=== PATIENT | male | born 1990 | race Caucasian/White ===

== ENCOUNTER 2017-03-14 11:59 | Emergency (ER) | payer OTHER ==
[~2017-03-14] VITALS: Ht 172.7 cm; Wt 74.8 kg
--- OUTSIDE RECORDS SUMMARY | 2017-03-14 12:22 | External Medical Summary Rpt | CCD ---
Demographics Preferred Language Frisian Marital Status Unknown Buddhist Affiliation Unknown Race Unknown Ethnic Group Unknown Author Author BRIAN Address Unknown Phone Purpose Continuity of Care Document - through 2016
--- OUTSIDE RECORDS SUMMARY | 2017-03-14 12:22 | External Medical Summary Rpt | CCD ---
Author Author , BRIAN Organization BRIAN Address Unknown Phone [email or web address] Purpose Continuity of Care Document - 04-09-2016 through 2016 Results Labs Lab Lab Date Result Refere Interp Status Commen Order Detail nces retati t Range on Bacteria Bld Cult (04-25-2016 15:09) Bacteri No active a XXX 017 growth Aerobe 15:09 at 4 Cult days Comp Metab 1997 Pnl SerPl (04-25-2016 15:09) Anion 16.0 3.0-11. complet Gap3 017 mmol/L 0 ed SerPl-s 15:09 Cnc BUN/Cre 17.1 7.0-25. complet at 017 0 ed SerPl 15:09 Albumin 1.3 1.5-2.5 complet /Glob 017 g/dL ed SerPl 15:09 Globuli 3.6 complet n Ur 017 gm/dL ed Elph-mC 15:09 nc GFR/BSA 140 >60 complet .pred 017 mL/min/ ed SerPl 15:09 1.73 MDRD-Ar VRat Bilirub 1.0 0.3-1.2 complet 017 mg/dL ed SerPl-m 15:09 Cnc ALP 66 U/L 25-100 complet SerPl-c 017 ed Cnc 15:09 AST 36 U/L 0-33 complet SerPl-c 017 ed Cnc 15:09 ALT 43 U/L 7-40 complet SerPl w 017 ed 15:09 P-5'-P- cCnc Albumin 4.70 3.20-4. complet 017 g/dL 80 ed SerPl-m 15:09 Cnc Prot 8.3 5.7-8.2 complet SerPl-m 017 g/dL ed Cnc 15:09 Calcium 10.1 8.7-10. complet 017 mg/dL 4 ed XXX-sCn 15:09 c CO2 26.0 20.0-31 complet SerPl-s 017 mmol/L .0 ed Cnc 15:09 Chlorid 103 99-109 complet e 017 mmol/L ed SerPl-s 15:09 Cnc Potassi 4.1 3.5-5.5 complet um 017 mmol/L ed Bld-sCn 15:09 c Sodium 145 132-146 complet Bld-sCn 017 mmol/L ed c 15:09 Creat 0.70 0.60-1. complet Bld-mCn 017 mg/dL 30 ed c 15:09 BUN 12 9-23 complet Bld-mCn 017 mg/dL ed c 15:09 Glucose 77 70-100 complet 017 mg/dL ed Bld-mCn 15:09 c ESR Bld Qn (04-25-2016 15:09) ESR Bld 7 mm/hr 0-15 complet Qn 017 ed 15:09 CBC W Diff pnl,unspecified Bld (04-25-2016 15:09) Neutrop 1.98 1.50-8. complet hils # 017 10*3/mm 30 ed Bld 15:09 3 Auto Imm 0.2 % 0.0-0.6 complet Granulo 017 ed cytes 15:09 NFr Bld Basophi 0.2 % 0.0-1.0 complet ls NFr 017 ed Bld 15:09 Auto Eosinop 0.5 % 0.0-3.0 complet hil NFr 017 ed Bld 15:09 Auto Monocyt 4.7 % 0.0-12. complet es NFr 017 0 ed Bld 15:09 Auto Lymphoc 45.7 % 24.0-44 complet ytes 017 .0 ed NFr Bld 15:09 Auto Neutrop 48.7 % 41.0-71 complet hils 017 .0 ed NFr Bld 15:09 Auto Platele 241 150-450 complet t # Bld 017 10*3/mm ed Auto 15:09 3 PMV Bld 9.9 fL 6.0-12. complet Auto 017 0 ed 15:09 RDW RBC 04-25-2 44.1 fl 37.0-54 complet Auto 017 .0 ed 15:09 RDW RBC 04-25- 12.9 % 11.3-14 complet 017 .5 ed Auto-Rt 15:09 o MCHC 35.4 32.0-36 complet RBC 017 g/dL .0 ed Auto-mC 15:09 nc MCH RBC 32.9 pg 27.0-31 complet Qn 017 .0 ed Auto 15:09 MCV RBC 93.1 fL 80.0-99 complet Auto 017 .0 ed 15:09 Hct VFr 44.4 % 38.9-50 complet Bld 017 .9 ed Auto 15:09 Hgb 04-25- 15.7 13.1-17 complet Bld-mCn 017 g/dL .5 ed c 15:09 RBC # 04-25-2 4.77 4.20-5. complet Bld 017 10*6/mm 76 ed Auto 15:09 3 WBC 04-25-2 4.07 3.50-10 complet nRBC 017 10*3/mm .80 ed cor # 15:09 3 Bld Lymphoc 04-25-2 1.86 0.60-4. complet ytes # 017 10*3/mm 80 ed Bld 15:09 3 Auto Basophi 04-25-2 0.01 0.00-0. complet ls # 017 10*3/mm 20 ed Bld 15:09 3 Auto Imm 04-25-2 0.01 0.00-0. complet Granulo 017 10*3/mm 03 ed cytes # 15:09 3 Bld Eosinop 04-25-2 0.02 0.10-0. complet hil # 017 10*3/mm 30 ed Bld 15:09 3 Auto Monocyt 04-25-2 0.19 0.00-1. complet es # 017 10*3/mm 00 ed Bld 15:09 3 Auto CBC (hemogram) Bld Auto (04-13-2016 06:54) Platele 233 150-450 complet t # Bld 017 10*3/mm ed Auto 06:54 3 PMV Bld 9.7 fL 6.0-12. complet Auto 017 0 ed 06:54 RDW RBC 41.5 fl 37.0-54 complet Auto 017 .0 ed 06:54 RDW RBC 12.9 % 11.3-14 complet 017 .5 ed Auto-Rt 06:54 o MCHC 36.4 32.0-36 complet RBC 017 g/dL .0 ed Auto-mC 06:54 nc MCH RBC 32.6 pg 27.0-31 complet Qn 017 .0 ed Auto 06:54 MCV RBC 89.6 fL 80.0-99 complet Auto 017 .0 ed 06:54 Hct VFr 39.6 % 38.9-50 complet Bld 017 .9 ed Auto 06:54 Hgb 14.4 13.1-17 complet Bld-mCn 017 g/dL .5 ed c 06:54 RBC # 4.42 4.20-5. complet Bld 017 10*6/mm 76 ed Auto 06:54 3 WBC 6.12 3.50-10 complet nRBC 017 10*3/mm .80 ed cor # 06:54 3 Bld Bas Metab 2000 Pnl SerPl (04-13-2016 06:54) Anion 6.0 3.0-11. complet Gap3 017 mmol/L 0 ed SerPl-s 06:54 Cnc BUN/Cre 12.9 7.0-25. complet at 017 0 ed SerPl 06:54 GFR/BSA 140 >60 complet .pred 017 mL/min/ ed SerPl 06:54 1.73 MDRD-Ar VRat Calcium 9.2 8.7-10. complet 017 mg/dL 4 ed XXX-sCn 06:54 c CO2 24.0 20.0-31 complet SerPl-s 017 mmol/L .0 ed Cnc 06:54 Chlorid 106 99-109 complet e 017 mmol/L ed SerPl-s 06:54 Cnc Potassi 3.8 3.5-5.5 complet um 017 mmol/L ed Bld-sCn 06:54 c Sodium 136 132-146 complet Bld-sCn 017 mmol/L ed c 06:54 Creat 0.70 0.60-1. complet Bld-mCn 017 mg/dL 30 ed c 06:54 BUN 9 mg/dL 9-23 complet Bld-mCn 017 ed c 06:54 Glucose 93 70-100 complet 017 mg/dL ed Bld-mCn 06:54 c Bacteria Shlw Wnd Aerobe Cult (04-11-2016 18:07) Bacteri [id number] complet a XXX 297 [id number] ed Aerobe 18:07 1 Cult ALPHA-H EMOLYTI C STREPTO COCCUS SPECIES NOT STREPTO COCCUS PNEUMON IAE SCT Gram No WBCs complet Stn XXX 017 or ed 18:07 organis ms seen Vancomycin Trough SerPl-mCnc (04-11-2016 09:43) Vancomy 5.30 10.00-2 complet apollo 017 mcg/mL 0.00 ed Trough 09:43 SerPl-m [facility] CBC (hemogram) Bld Auto (04-11-2016 07:24) Hct VFr 37.8 % 38.9-50 complet Bld 017 .9 ed Auto 07:24 Hgb 13.9 13.1-17 complet Bld-mCn 017 g/dL .5 ed c 07:24 RBC # 4.19 4.20-5. complet Bld 017 10*6/mm 76 ed Auto 07:24 3 WBC 5.06 3.50-10 complet nRBC 017 10*3/mm .80 ed cor # 07:24 3 Bld Platele 207 150-450 complet t # Bld 017 10*3/mm ed Auto 07:24 3 PMV Bld 9.8 fL 6.0-12. complet Auto 017 0 ed 07:24 RDW RBC 42.2 fl 37.0-54 complet Auto 017 .0 ed 07:24 RDW RBC 12.8 % 11.3-14 complet 017 .5 ed Auto-Rt 07:24 o MCHC 36.8 32.0-36 complet RBC 017 g/dL .0 ed Auto-mC 07:24 nc MCH RBC 33.2 pg 27.0-31 complet Qn 017 .0 ed Auto 07:24 MCV RBC 90.2 fL 80.0-99 complet Auto 017 .0 ed 07:24 Comp Metab 1998 Pnl SerPl (04-11-2016 07:24) Albumin 1.2 1.5-2.5 complet /Glob 017 g/dL ed SerPl 07:24 Globuli 3.2 complet n Ur 017 gm/dL ed Elph-mC 07:24 nc GFR/BSA > 150 >60 complet .pred 017 mL/min/ ed SerPl 07:24 1.73 MDRD-Ar VRat Bilirub 0.6 0.3-1.2 complet 017 mg/dL ed SerPl-m 07:24 Cnc ALP 48 U/L 25-100 complet SerPl-c 017 ed Cnc 07:24 AST 20 U/L 0-33 complet SerPl-c 017 ed Cnc 07:24 ALT 24 U/L 7-40 complet SerPl w 017 ed 07:24 P-5'-P- cCnc Albumin 3.80 3.20-4. complet 017 g/dL 80 ed SerPl-m 07:24 Cnc Prot 7.0 5.7-8.2 complet SerPl-m 017 g/dL ed Cnc 07:24 Calcium 9.1 8.7-10. complet 017 mg/dL 4 ed XXX-sCn 07:24 c CO2 21.0 20.0-31 complet SerPl-s 017 mmol/L .0 ed Cnc 07:24 Chlorid 105 99-109 complet e 017 mmol/L ed SerPl-s 07:24 Cnc Potassi 3.5 3.5-5.5 complet um 017 mmol/L ed Bld-sCn 07:24 c Sodium 136 132-146 complet Bld-sCn 017 mmol/L ed c 07:24 Creat 0.60 0.60-1. complet Bld-mCn 017 mg/dL 30 ed c 07:24 BUN < 5 9-23 complet Bld-mCn 017 mg/dL ed c 07:24 Glucose 95 70-100 complet 017 mg/dL ed Bld-mCn 07:24 c Anion 10.0 3.0-11. complet Gap3 017 mmol/L 0 ed SerPl-s 07:24 Cnc Drugs Ur Scn (04-10-2016 05:16) Bupreno [id number] Negativ complet rphine 017 09 e ed SerPl-m 05:16 Negativ Cnc e SCT Propoxy [id number] Negativ complet ph Ur 017 09 e ed Ql 05:16 Negativ e SCT Oxycodo [id number] Negativ complet ne Ur 017 09 e ed Ql Scn 05:16 Negativ e SCT Barbitu 9730919 Negativ complet rates 017 09 e ed Ur Ql 05:16 Negativ Scn e SCT Methado [id number] Negativ complet ne Ur 017 09 e ed Ql Scn 05:16 Negativ e SCT Tricycl 1935009 Negativ complet ics Ur 017 09 e ed Ql Scn 05:16 Negativ e SCT Benzodi 3023029 Negativ complet az Ur 017 09 e ed Ql Scn 05:16 Negativ e SCT Amphet+ 6077104 Negativ complet Methamp 017 09 e ed het Ur 05:16 Negativ Ql e SCT Opiates 5092783 Negativ complet Ur Ql 017 4 e ed 05:16 Positiv e SCT Ampheta 4424668 Negativ complet mines 017 09 e ed Ur Ql 05:16 Negativ e SCT Cocaine 3932149 Negativ complet Ur Ql 017 4 e ed 05:16 Positiv e SCT PCP Ur 9023858 Negativ complet Ql Scn 017 09 e ed 05:16 Negativ e SCT Cannabi [id number] Negativ complet noids 017 09 e ed SerPl 05:16 Negativ Ql e SCT Bacteria Bld Cult (04-09-2016 23:02) Bacteri No complet a XXX 017 growth ed Aerobe 23:02 at 5 Cult days Comp Metab 1998 Pnl SerPl (04-09-2016 20:06) Anion 10.0 3.0-11. complet Gap3 017 mmol/L 0 ed SerPl-s 20:06 Cnc BUN/Cre 15.0 7.0-25. complet at 017 0 ed SerPl 20:06 Albumin 1.2 1.5-2.5 complet /Glob 017 g/dL ed SerPl 20:06 Globuli 3.2 complet n Ur 017 gm/dL ed Elph-mC 20:06 nc GFR/BSA 120 >60 complet .pred 017 mL/min/ ed SerPl 20:06 1.73 MDRD-Ar VRat Bilirub 1.0 0.3-1.2 complet 017 mg/dL ed SerPl-m 20:06 Cnc ALP 57 U/L 25-100 complet SerPl-c 017 ed Cnc 20:06 AST 24 U/L 0-33 complet SerPl-c 017 ed Cnc 20:06 ALT 33 U/L 7-40 complet SerPl w 017 ed 20:06 P-5'-P- cCnc Albumin 3.90 3.20-4. complet 017 g/dL 80 ed SerPl-m 20:06 Cnc Prot 7.1 5.7-8.2 complet SerPl-m 017 g/dL ed Cnc 20:06 Calcium 9.2 8.7-10. complet 017 mg/dL 4 ed XXX-sCn 20:06 c CO2 26.0 20.0-31 complet SerPl-s 017 mmol/L .0 ed Cnc 20:06 Chlorid 103 99-109 complet e 017 mmol/L ed SerPl-s 20:06 Cnc Potassi 3.7 3.5-5.5 complet um 017 mmol/L ed Bld-sCn 20:06 c Sodium 139 132-146 complet Bld-sCn 017 mmol/L ed c 20:06 Creat 2 0.80 0.60-1. complet Bld-mCn 017 mg/dL 30 ed c 20:06 BUN 12 9-23 complet Bld-mCn 017 mg/dL ed c 20:06 Glucose 116 70-100 complet 017 mg/dL ed Bld-mCn 20:06 c CBC W Diff pnl,unspecified Bld (04-09-2016 20:06) Imm 04-09-2 0.01 0.00-0. complet Granulo 017 10*3/mm 03 ed cytes # 20:06 3 Bld Basophi 2 0.02 0.00-0. complet ls # 017 10*3/mm 20 ed Bld 20:06 3 Auto Eosinop 04-09-2 0.06 0.10-0. complet hil # 017 10*3/mm 30 ed Bld 20:06 3 Auto Monocyt 04-09-2 0.53 0.00-1. complet es # 017 10*3/mm 00 ed Bld 20:06 3 Auto Lymphoc 04-09-2 2.32 0.60-4. complet ytes # 017 10*3/mm 80 ed Bld 20:06 3 Auto Neutrop 04-09-2 2.62 1.50-8. complet hils # 017 10*3/mm 30 ed Bld 20:06 3 Auto Imm 04-09-2 0.2 % 0.0-0.6 complet Granulo 017 ed cytes 20:06 NFr Bld Basophi 04-09-2 0.4 % 0.0-1.0 complet ls NFr 017 ed Bld 20:06 Auto Eosinop 04-09-2 1.1 % 0.0-3.0 complet hil NFr 017 ed Bld 20:06 Auto Monocyt 01-03-2 9.5 % 0.0-12. complet es NFr 017 0 ed Bld 20:06 Auto Lymphoc 41.7 % 24.0-44 complet ytes 017 .0 ed NFr Bld 20:06 Auto Neutrop 47.1 % 41.0-71 complet hils 017 .0 ed NFr Bld 20:06 Auto Platele 202 150-450 complet t # Bld 017 10*3/mm ed Auto 20:06 3 PMV Bld 9.9 fL 6.0-12. complet Auto 017 0 ed 20:06 RDW RBC 42.4 fl 37.0-54 complet Auto 017 .0 ed 20:06 RDW RBC 12.8 % 11.3-14 complet 017 .5 ed Auto-Rt 20:06 o MCHC 36.2 32.0-36 complet RBC 017 g/dL .0 ed Auto-mC 20:06 nc MCH RBC 33.0 pg 27.0-31 complet Qn 017 .0 ed Auto 20:06 MCV RBC 91.1 fL 80.0-99 complet Auto 017 .0 ed 20:06 Hct VFr 38.9 % 38.9-50 complet Bld 017 .9 ed Auto 20:06 Hgb 14.1 13.1-17 complet Bld-mCn 017 g/dL .5 ed c 20:06 RBC # 03-2 4.27 4.20-5. complet Bld 017 10*6/mm 76 ed Auto 20:06 3 WBC 04-09-2 5.56 3.50-10 complet nRBC 017 10*3/mm .80 ed cor # 20:06 3 Bld
--- OUTSIDE RECORDS SUMMARY | 2017-03-14 12:22 | External Medical Summary Rpt | CCD ---
Demographics Preferred Language Yoruba Marital Status Unknown Amish Affiliation Unknown Race Unknown Ethnic Group Unknown Author Author , BRIAN TORRES Address Unknown Phone Immunization Name Date Rout CVX Reac Dose Comm Prov Is Faci e tion ent ider Refu lity Give sed n Taiwo 11- 2 999 Hist H109 No H109 o-OP 7- oric V 97 al Info rmat ion - Sour ce Unsp ecif ied DTaP 11- 107 999 Hist H109 No H109 , UF 7- oric 97 al Info rmat ion - Sour ce Unsp ecif ied MMR 11- 3 999 Hist H109 No H109 7- oric 97 al Info rmat ion - Sour ce Unsp ecif ied
--- OUTSIDE RECORDS SUMMARY | 2017-03-14 12:22 | External Medical Summary Rpt | CCD ---
Author Author , BRIAN Organization BRIAN Address Unknown Phone [email or web address] Purpose Continuity of Care Document - 04-09-2016 [...] Shlw Wnd Aerobe Cult (04-11-2016 18:07) Bacteri [id number] complet a XXX 396 [id number] ed Aerobe 18:07 1 Cult ALPHA-H EMOLYTI C STREPTO COCCUS SPECIES NOT STREPTO COCCUS PNEUMON IAE SCT Gram No WBCs complet Stn XXX 017 or ed 18:07 organis ms seen Vancomycin Trough SerPl-mCnc (04-11-2016 09:43) Vancomy 5.30 10.00-2 complet apollo 017 mcg/mL 0.00 ed Trough 09:43 SerPl-m [facility] CBC (hemogram) Bld Auto (04-11-2016 07:24) Hct [...] Cnc Drugs Ur Scn (04-10-2016 05:16) Bupreno [id number] Negativ complet rphine 017 09 e ed SerPl-m 05:16 Negativ Cnc e SCT Propoxy 9400257 Negativ complet ph Ur 017 09 e ed Ql 05:16 Negativ e SCT Oxycodo 0249225 Negativ complet ne Ur 017 09 e ed Ql Scn 05:16 Negativ e SCT Barbitu 0255622 Negativ complet rates 017 09 e ed Ur Ql 05:16 Negativ Scn e SCT Methado 0473040 Negativ complet ne Ur 017 09 e ed Ql Scn 05:16 Negativ e SCT Tricycl 2541363 Negativ complet ics Ur 017 09 e ed Ql Scn 05:16 Negativ e SCT Benzodi 0729624 Negativ complet az Ur 017 09 e ed Ql Scn 05:16 Negativ e SCT Amphet+ 2690638 Negativ complet Methamp 017 09 e ed het Ur 05:16 Negativ Ql e SCT Opiates 0613897 Negativ complet Ur Ql 017 4 e ed 05:16 Positiv e SCT Ampheta 1181951 Negativ complet mines 017 09 e ed Ur Ql 05:16 Negativ e SCT Cocaine 7515817 Negativ complet Ur Ql 017 4 e ed 05:16 Positiv e SCT PCP Ur 1506387 Negativ complet Ql Scn 017 09 e ed 05:16 Negativ e SCT Cannabi 9000671 Negativ complet noids 017 09 e ed [...]
--- OUTSIDE RECORDS SUMMARY | 2017-03-14 12:22 | External Medical Summary Rpt ---
Author Author BRIAN Oleary, BRIAN Oleary Organization [employer] Address Unknown Phone Unavailable
--- OUTSIDE RECORDS SUMMARY | 2017-03-14 12:22 | External Medical Summary Rpt | CCD ---
Demographics Preferred Language Turkish Marital Status Unknown Worship Affiliation Unknown Race Unknown Ethnic Group Unknown Author Author , BRIAN TORRES Address Unknown Phone [email or web address] Immunization Name Date Rout CVX Reac Dose [...]
--- OUTSIDE RECORDS SUMMARY | 2017-03-14 12:22 | External Medical Summary Rpt | CCD ---
Demographics Preferred Language Latvian Marital Status Unknown Latter Day Affiliation Unknown Race Unknown Ethnic Group Unknown Author Author BRIAN Address Unknown Phone [email or web address] Purpose Continuity of Care Document - through 2016
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
[2017-03-14 12:47] VITALS: BP 137/71
== END 2017-03-14 12:49 | disposition home or self-care (01) ==
LOC: ER 11:59
DX: T54.3X1A Toxic effect of corrosive alkalis and alkali-like substances, accidental (unintentional), initial encounter (principal); T24.611A Corrosion of second degree of right thigh, initial encounter; Y93.89 Activity, other specified; Y92.69 Other specified industrial and construction area as the place of occurrence of the external cause; Y99.0 Civilian activity done for income or pay; Z23 Encounter for immunization